=== PATIENT | female | born 1960 | race Caucasian/White ===

== ENCOUNTER 2017-11-05 21:13 | Emergency (ER) | END 2017-11-06 05:47 | disposition home or self-care (01) ==

== ENCOUNTER 2019-05-03 15:21 | Emergency (ER) | payer SELFPAY ==
[~2019-05-03] VITALS: Wt 75.0 kg
[2019-05-03 15:27] VITALS: BP 145/75; PULSE 89; RESP 18
== END 2019-05-03 20:44 | disposition left against medical advice (07) ==
LOC: E/R 15:21
DX: Z53.21 Procedure and treatment not carried out due to patient leaving prior to being seen by health care provider (principal)
CPT/HCPCS: 80053; 81001; 83690; 85025